=== PATIENT | female | born 1965 | race Asian ===

== ENCOUNTER 2024-12-30 22:24 | Emergency (ER) | payer SELFPAY ==
[~2024-12-30] VITALS: Ht 154.9 cm; Wt 50.0 kg
[2024-12-30 22:35] VITALS: O2SAT 100
[2024-12-31] MEDS ORDERED: IBUP-2029 MT (00:17)
[2024-12-31] MEDS ORDERED: T3 PO (00:17)
[2024-12-31] MEDS: HYDROCODONE/ACETAMINOPHEN 5/325MG TABLET PO ONE (00:30)
[2024-12-31] MEDS: IBUPROFEN 600MG TABLET PO ONE (00:31)
[2024-12-31 01:37] VITALS: BP 130/64; PULSE 83; RESP 18; TEMP 37.3; O2SAT 100
== END 2024-12-31 01:37 | disposition home or self-care (01) ==
LOC: ER 22:24
DX: S52.611A Displaced fracture of right ulna styloid process, initial encounter for closed fracture (principal); W18.39XA Other fall on same level, initial encounter; Y93.89 Activity, other specified; Y92.89 Other specified places as the place of occurrence of the external cause; Y99.8 Other external cause status
CPT/HCPCS: 29125; 73110; 99283; A4565